=== PATIENT | male | born 1965 | race African-American/Black ===

== ENCOUNTER 2019-06-24 22:50 | Emergency (ER) | payer SELFPAY ==
--- NOTE | 2019-06-24 23:31 | RAD ---
XR Chest 1 View Portable History: Right rib injury Comparison: None. Findings: Heart size mildly enlarged. No pneumothorax. No effusion. No acute osseous abnormality. Impression: Mild cardiomegaly otherwise no acute intrathoracic abnormality.
== END 2019-06-24 23:40 | disposition home or self-care (01) ==
LOC: MADERS 22:50
DX: S20.211A Contusion of right front wall of thorax, initial encounter (principal); M19.072 Primary osteoarthritis, left ankle and foot; M19.071 Primary osteoarthritis, right ankle and foot; G89.29 Other chronic pain; E03.9 Hypothyroidism, unspecified; I10 Essential (primary) hypertension; F17.220 Nicotine dependence, chewing tobacco, uncomplicated; W18.30XA Fall on same level, unspecified, initial encounter
CPT/HCPCS: 71045

== ENCOUNTER 2020-11-05 09:29 | Outpatient (CLI) | payer SELFPAY ==
[2020-11-05 10:22] LABS: #Basophils 0.1 thou/uL (0.0-0.2); #Eosinphils 0.4 thou/uL (0.0-0.7); #Lymphocytes 1.9 thou/uL (1.20-3.40); #Monocytes 0.3 thou/uL (0.11-0.59); #Neutrophils 3.1 thou/uL (1.40-6.50); %Basophils 1.6 % (0.0-1.0); %Eosinophils 6.2 % (0.0-10.0); %Lymphocytes 32.7 % (21.0-51.0); %Monocytes 5.5 % (0.0-10.0); %Neutrophils 54.1 % (42.0-75.0); Hemoglobin 15.3 g/dL (14.0-18.0); Mean Corpuscular HGB CONC 31.7 g/dL (32.0-36.0); Mean Corpuscular Hemoglobin 28.2 pg (27.0-31.0); Mean Corpuscular Volume 88.9 fL (78.0-98.0); Mean Platelet Volume 5.3 fL (7.4-10.4); Platelet Count 326 thou/uL (130-400); RBC Distribution Width 12.9 % (11.5-14.5); Red Blood Cell (RBC) Count 5.41 mill/uL (4.70-6.10); White Blood Cell (WBC) Count 5.7 thou/uL (4.8-10.8)
[2020-11-05 10:40] LABS: ALT (SGPT) 36 U/L (8-55); AST (SGOT) 20 U/L (5-34); Albumin 4.4 g/dL (3.5-5.0); Alkaline Phosphatase 78 U/L (40-110); Anion Gap 15 mmol/L (10-20); BUN (Urea Nitrogen) 11 mg/dL (8.4-25.7); Bilirubin, Total 0.5 mg/dL (0.2-1.2); Calc. Creatinine Clearance 0 mL/min (70-130); Carbon Dioxide 26 mmol/L (22-29); Cardiac Risk 3.6 (Less than 4.5); Chloride 104 mmol/L (98-107); Cholesterol 177 mg/dl (< 200 Desired); Globulin 2.5 g/dL (2.4-3.5); Glucose 120 mg/dL (70-105); HDL Cholesterol 49 mg/dL (>60 Neg Risk); LDL Cholesterol, Calculated 106 mg/dL; Potassium 4.5 mmol/L (3.5-5.1); Protein, Total 6.9 g/dL (6.0-8.3); Sodium 140 mmol/L (136-145); Triglycerides 111 mg/dL (Less than 150)
[2020-11-05 10:59] LABS: Thyroid Stimulating Hormone 2.1386 uIU/mL (0.35-4.94)
[2020-11-05 14:56] LABS: Creatinine, Urine 122.27 mg/dL (63-166); Microalbumin Urine Less than 1.0 mg/dL (0.5-50.0)
[2020-11-05 15:02] LABS: Free T4 (Free Thyroxine) 0.92 ng/dL (0.70-1.48)
== END 2020-11-05 09:30 | disposition home or self-care (01) ==
LOC: MADLAB 09:29
PROVIDERS: ATTEND Family Medicine
DX: E11.9 Type 2 diabetes mellitus without complications (principal); I10 Essential (primary) hypertension; E03.9 Hypothyroidism, unspecified
CPT/HCPCS: 36415; 80053; 80061; 82043; 83036; 84439; 84443; 85025

== ENCOUNTER 2021-04-16 12:43 | Outpatient (CLI) | payer BC, MEDICAID | END 2021-04-16 12:44 | disposition home or self-care (01) | LOC: MADRAD 12:43 | PROVIDERS: ATTEND Family Medicine | DX: M25.511 Pain in right shoulder (principal); M25.512 Pain in left shoulder; M54.2 Cervicalgia; R07.81 Pleurodynia; M19.011 Primary osteoarthritis, right shoulder; M19.012 Primary osteoarthritis, left shoulder; M47.812 Spondylosis without myelopathy or radiculopathy, cervical region | CPT/HCPCS: 72040 ==

== ENCOUNTER 2021-05-29 05:23 | Outpatient (CLI) | payer BC, MEDICAID ==
[2021-05-29 06:28] LABS: Thyroid Stimulating Hormone 3.5452 uIU/mL (0.35-4.94)
[2021-05-29 11:11] LABS: Albumin (w/Testosterone Panel) 4.1 g/dL
[2021-05-29 11:31] LABS: Sex Hormone Binding Globulin 22.3 nmol/L (11-78); Testosterone, Free 47.5 pg/mL (47-244); Testosterone, Total 197.3 ng/dL (221-716)
[2021-05-29 18:55] LABS: Free T4 (Free Thyroxine) 0.92 ng/dL (0.70-1.48)
[2021-05-29 19:02] LABS: PSA-Symptomatic (DIAGNOSTIC) 0.7 ng/mL (0-4.0)
== END 2021-05-29 05:24 | disposition home or self-care (01) ==
LOC: MADLAB 05:23
PROVIDERS: ATTEND Family Medicine
DX: E03.9 Hypothyroidism, unspecified (principal); N52.9 Male erectile dysfunction, unspecified; E11.9 Type 2 diabetes mellitus without complications
CPT/HCPCS: 36415; 83036; 84153; 84270; 84403; 84439; 84443

== ENCOUNTER 2021-07-03 15:12 | Outpatient (CLI) | payer BC, MEDICAID ==
[2021-07-03 16:24] LABS: ALT (SGPT) 31 U/L (8-55); AST (SGOT) 18 U/L (5-34); Albumin 4.1 g/dL (3.5-5.0); Alkaline Phosphatase 79 U/L (40-110); Anion Gap 14 mmol/L (10-20); BUN (Urea Nitrogen) 11 mg/dL (8.4-25.7); Bilirubin, Total 0.4 mg/dL (0.2-1.2); Calc. Creatinine Clearance 0 mL/min (70-130); Calcium 9.3 mg/dL (7.8-10.44); Carbon Dioxide 26 mmol/L (22-29); Chloride 104 mmol/L (98-107); Glucose 128 mg/dL (70-105); Potassium 4.2 mmol/L (3.5-5.1); Protein, Total 7.1 g/dL (6.0-8.3); Sodium 140 mmol/L (136-145)
[2021-07-03 16:27] LABS: CKMB 1.3 ng/mL (0-6.6); Troponin I Less than 0.010 ng/mL (< 0.028)
== END 2021-07-03 15:13 | disposition home or self-care (01) ==
LOC: MADLAB 15:12
PROVIDERS: ATTEND Family Medicine
DX: R07.9 Chest pain, unspecified (principal); I10 Essential (primary) hypertension
CPT/HCPCS: 36415; 80053; 82553; 84484; 93005; 93010

== ENCOUNTER 2022-04-03 07:20 | Outpatient (CLI) | payer BC, OTHER ==
[2022-04-03] MEDS ORDERED: Iopamidol 370 76% 100 ML VIAL ONE (09:00)
== END 2022-04-03 07:21 | disposition home or self-care (01) ==
LOC: MADCT 07:20
PROVIDERS: ATTEND Internal Medicine
DX: R10.9 Unspecified abdominal pain (principal); K57.30 Diverticulosis of large intestine without perforation or abscess without bleeding; K76.0 Fatty (change of) liver, not elsewhere classified
CPT/HCPCS: 74177; Q9967

== ENCOUNTER 2023-12-03 06:25 | Outpatient (CLI) | payer OTHER | END 2023-12-03 06:26 | disposition home or self-care (01) | LOC: MADRAD 06:25 | PROVIDERS: ATTEND Family Medicine | DX: M25.511 Pain in right shoulder (principal); M25.512 Pain in left shoulder; M89.212 Other disorders of bone development and growth, left shoulder; M89.211 Other disorders of bone development and growth, right shoulder ==